=== PATIENT | female | born 1955 | race Caucasian/White ===

== ENCOUNTER → 2017-10-20 | Outpatient (CLI) | payer BC ==
[~2017-10-20] MED LIST: AMBIEN PO; ASPI-650 PO; BENA40TA2 PO; CALC-39 PO; DIAZ2TAB3 PO; HYDR25TA6 PO; MULTIVITAMIN PO; MUPI22OI2 NAS; OXYC-307 PO; OXYC5CAP2 PO; PREMARIN TP; SOLI5TAB2 PO; TRAM50TA2 PO; ZOLP10TA5 PO
== END | disposition home or self-care (01) ==
LOC: CFH 09:04
PROVIDERS: ATTEND Family Medicine
DX: Z12.31 Encounter for screening mammogram for malignant neoplasm of breast (principal)
CPT/HCPCS: 77063; G0202

== ENCOUNTER 2018-01-14 10:17 | Emergency (ER) | payer BC ==
[~2018-01-14] VITALS: Ht 180.3 cm; Wt 106.4 kg
[2018-01-14 10:24] VITALS: BP 155/82
[2018-01-14] MEDS ORDERED: LIDOCAINE 2%, 20ML SQ ONE (11:00)
[2018-01-14] MEDS ORDERED: DIPH,PERTUSS(ACELL),TET VAC/PF 0.5 ML IM-VACC ONE ×3 (11:00→12:30)
[2018-01-14] MEDS ORDERED: BACITRACIN ZINC OINT 500U/GM, 0.9 GM ONE (12:50)
[2018-01-14] MEDS ORDERED: LIDOCAINE 1%, 20ML ONE (12:52)
== END 2018-01-14 12:59 | disposition home or self-care (01) ==
LOC: ED 12:58
DX: S60.351A Superficial foreign body of right thumb, initial encounter (principal); X58.XXXA Exposure to other specified factors, initial encounter; Y93.89 Activity, other specified; Y99.8 Other external cause status; Y92.89 Other specified places as the place of occurrence of the external cause
CPT/HCPCS: 10120; 73130; 90471; 90715; 99284; J3490

== ENCOUNTER → 2018-09-30 | Outpatient (CLI) | payer MEDICARE ==
[~2018-09-30] MED LIST changes: -BENA40TA2 PO; +BENA40TA3 PO
== END | disposition home or self-care (01) ==
LOC: CFH 12:14
PROVIDERS: ATTEND Family Medicine
DX: R06.02 Shortness of breath (principal); R07.89 Other chest pain
CPT/HCPCS: 78452; 93017; A9502

== ENCOUNTER 2019-12-07 14:28 | Outpatient (CLI) | payer MEDICARE | END 2019-12-07 23:59 | disposition home or self-care (01) | LOC: CFH 14:28 | PROVIDERS: ATTEND Obstetrics & Gynecology Female Pelvic Medicine and Reconstructive Surgery | DX: N63.21 Unspecified lump in the left breast, upper outer quadrant (principal) | CPT/HCPCS: 76642; 77066; G0279 ==

== ENCOUNTER → 2021-06-14 | Outpatient (CLI) | payer MEDICARE ==
[~2021-06-14] MED LIST changes: +ASPI-1026 PO; -ASPI-650 PO; -OXYC-307 PO; +OXYC-380 PO
== END | disposition home or self-care (01) ==
LOC: CFH 09:10
PROVIDERS: ATTEND Family Medicine
DX: Z12.31 Encounter for screening mammogram for malignant neoplasm of breast (principal)
CPT/HCPCS: 77063; 77067